=== PATIENT | male | born 1945 | race Caucasian/White ===

== ENCOUNTER 2022-08-06 10:09 | Outpatient (CLI) | payer MEDICARE, BC ==
[~2022-08-06 10:09] MED LIST: Iopamidol 370 76% 100 ML VIAL ONE
== END 2022-08-06 10:10 | disposition home or self-care (01) ==
LOC: BICCT 10:09
PROVIDERS: ATTEND Internal Medicine Cardiovascular Disease
DX: I65.23 Occlusion and stenosis of bilateral carotid arteries (principal); I67.2 Cerebral atherosclerosis
CPT/HCPCS: 70498; 82565

== ENCOUNTER 2024-06-15 17:56 | Inpatient (IN) | payer MEDICARE, BC ==
[2024-06-15] MEDS ORDERED: hydrALAZINE 20 MG/ML VIAL SLOW IVP PRN (22:07)
[2024-06-15] MEDS ORDERED: Labetalol HCl 100 MG/20 ML VIAL SLOW IVP PRN (22:07)
[2024-06-15 23:02] VITALS: BMI 28.0
[2024-06-16] MEDS ORDERED: Ondansetron PF 4 MG/2 ML Vial IVP PRN (00:47)
[2024-06-16] MEDS ORDERED: Acetaminophen 650 MG Suppository PR PRN (00:47)
[2024-06-16] MEDS ORDERED: Acetaminophen 325 MG TAB PO PRN (00:47)
[2024-06-16] MEDS ORDERED: Ondansetron ODT 4 MG TAB PO PRN (00:47)
[2024-06-16] MEDS ORDERED: Calcium Carbonate 500 MG ChewTAB PO PRN (00:47)
[2024-06-16] MEDS ORDERED: Insulin Lispro 100 UNIT/ML 10 ML VIAL SC PRN ×2 (00:49)
[2024-06-16] MEDS ORDERED: Dextrose 5% in Water 1,000 ML IV PRN (00:49)
[2024-06-16] MEDS ORDERED: Glucagon 1 MG/ML KIT IM PRN (00:49)
[2024-06-16] MEDS ORDERED: Dextrose 50% Abboject 50 ML SYRINGE SLOW IVP PRN (00:49)
[2024-06-16 03:48] LABS: #Basophils 0.03 10x3/uL (0.0-0.2); %Basophils 0.4 % (0.0-1.0); %Eosinophils 2.6 % (0.0-10.0); %Lymphocytes 21.4 % (21.0-51.0); %Monocytes 10.6 % (0.0-10.0); %Neutrophils 64.8 % (42.0-75.0); Hematocrit 40.4 % (42.0-52.0); Hemoglobin 13.2 g/dL (14.0-18.0); Mean Corpuscular HGB CONC 32.7 g/dL (32.0-36.0); Mean Corpuscular Hemoglobin 29.7 pg (27.0-31.0); Mean Corpuscular Volume 90.8 fL (78.0-98.0); Mean Platelet Volume 9.4 fL (7.4-10.4); Platelet Count 214 10x3/uL (130-400); RBC Distribution Width 13.2 % (11.5-14.5); Red Blood Cell (RBC) Count 4.45 mill/uL (4.70-6.10)
[2024-06-16 04:10] LABS: Anion Gap 13 mmol/L (10-20); BUN (Urea Nitrogen) 25 mg/dL (8.4-25.7); Calc. Creatinine Clearance 65 mL/min (70-130); Calcium 9.5 mg/dL (7.8-10.44); Carbon Dioxide 22 mmol/L (23-31); Cardiac Risk 4.6 (Less than 4.5); Chloride 108 mmol/L (98-107); Cholesterol 167 mg/dl (< 200 Desired); Estimated GFR 65; Glucose 103 mg/dL (83-110); HDL Cholesterol 36 mg/dL (>60 Neg Risk); LDL Cholesterol, Calculated 90 mg/dL; Potassium 4.4 mmol/L (3.5-5.1); Sodium 139 mmol/L (136-145); Triglycerides 203 mg/dL (Less than 150)
[2024-06-16] MEDS ORDERED: Lorazepam 1 MG TAB PO SCH (06:45)
[2024-06-16] MEDS: Lorazepam 1 MG TAB PO SCH (07:51)
[2024-06-16] MEDS: Cilostazol 100 MG TAB PO SCH (09:48)
[2024-06-16] MEDS: Vit A,C & E/Lutein/Minerals Tablet PO SCH (09:48)
[2024-06-16] MEDS: Atorvastatin Calcium 20 MG TAB PO SCH (09:49)
[2024-06-16] MEDS: Aspirin 81 mg Enteric Coated Tablet PO SCH (09:49)
[2024-06-16] MEDS: Famotidine 20 MG TAB PO SCH (09:49)
[2024-06-16] MEDS: Losartan 25 MG TAB PO SCH (09:49)
[2024-06-16] MEDS: Famotidine/PF 20 mg/2ml Vial SLOW IVP SCH (09:49)
[2024-06-16] MEDS: metFORMIN 500 MG TAB PO SCH (09:49)
[2024-06-16] MEDS: Metoprolol Succinate XL 25 MG ER.TAB PO SCH (09:49)
[2024-06-16 13:29] LABS: Hemoglobin A1c 5.8 % (4.0-6.0)
[2024-06-16] MEDS ORDERED: Atorvastatin Calcium 40 MG TAB PO SCH (21:00)
[2024-06-16] MEDS: Amitriptyline HCl 100 MG TAB PO SCH (21:55)
[2024-06-16] MEDS: Enoxaparin 40 MG (0.4 mL) SYRINGE SC SCH (22:00)
[2024-06-17] MEDS: Clopidogrel Bisulfate 75 MG TAB PO SCH (09:02)
[2024-06-18] MEDS ORDERED: PROPOFOL 0 ML ONE (10:49)
[2024-06-18] MEDS ORDERED: KETAMINE 100 MG/ML (5ML VIAL) ONE (13:31)
[2024-06-18] MEDS ORDERED: Midazolam HCl 2 mg/2 ml Vial ONE (13:31)
[2024-06-18] MEDS ORDERED: PROPOFOL 200 MG/20 ML VIAL ONE (13:46)
[2024-06-19] MEDS: QUEtiapine 25 MG TAB PO SCH (02:26)
[2024-06-20] MEDS ORDERED: Electrolyte Replacement Protocol 1 EACH FS ONE (08:27)
[2024-06-20] MEDS ORDERED: Electrolyte Replacement Protocol FS PRN (08:30)
[2024-06-20 12:17] VITALS: BP 150/72; TEMP 97.7
== END 2024-06-20 16:25 | disposition home or self-care (01) | DRG 69 ==
LOC: 2SE 18:43 → OBSVTOIN 06-16 13:37
PROVIDERS: ADMIT Family Medicine; ATTEND Internal Medicine
PROC: B24BZZ4 Ultrasonography of Heart with Aorta, Transesophageal (ICD-10-PCS; principal; 2024-06-18)
DX: G45.9 Transient cerebral ischemic attack, unspecified (principal); I42.9 Cardiomyopathy, unspecified; I35.0 Nonrheumatic aortic (valve) stenosis; E11.9 Type 2 diabetes mellitus without complications; I12.9 Hypertensive chronic kidney disease with stage 1 through stage 4 chronic kidney disease, or unspecified chronic kidney disease; N18.2 Chronic kidney disease, stage 2 (mild); E78.5 Hyperlipidemia, unspecified; D63.1 Anemia in chronic kidney disease; Z79.82 Long term (current) use of aspirin; Z79.899 Other long term (current) drug therapy; I73.9 Peripheral vascular disease, unspecified
CPT/HCPCS: 36415; 36416; 70450; 70551; 80048; 80061; 83036; 84443; 85025; 86141; 93306; 93312; 93880; G0378; J1650; J2250; J2704; J3490

== ENCOUNTER 2025-01-07 07:24 | Day surgery (SDC) | payer MEDICARE, BC ==
[2025-01-07] MEDS ORDERED: PROPOFOL 20 ML ONE ×2 (07:51→07:52)
[2025-01-07] MEDS ORDERED: PHENYLEPHRINE-NS 100 MCG/ML 10 ML SYRINGE ONE (07:56)
[2025-01-07] MEDS ORDERED: Lidocaine 1% PF 5 ML VIAL ONE (08:38)
== END 2025-01-07 10:13 | disposition home or self-care (01) ==
LOC: SDC 07:24
PROVIDERS: ATTEND Internal Medicine Gastroenterology
PROC: 0DD98ZX Extraction of Duodenum, Via Natural or Artificial Opening Endoscopic, Diagnostic (ICD-10-PCS; principal; 2025-01-07)
PROC: 0DJD8ZZ Inspection of Lower Intestinal Tract, Via Natural or Artificial Opening Endoscopic (ICD-10-PCS; 2025-01-07)
DX: D50.9 Iron deficiency anemia, unspecified (principal); K29.00 Acute gastritis without bleeding; K26.9 Duodenal ulcer, unspecified as acute or chronic, without hemorrhage or perforation; K63.89 Other specified diseases of intestine; I73.9 Peripheral vascular disease, unspecified; E11.42 Type 2 diabetes mellitus with diabetic polyneuropathy; E78.5 Hyperlipidemia, unspecified; E21.3 Hyperparathyroidism, unspecified; I10 Essential (primary) hypertension; I25.10 Atherosclerotic heart disease of native coronary artery without angina pectoris; Z79.82 Long term (current) use of aspirin; Z79.84 Long term (current) use of oral hypoglycemic drugs; Z79.899 Other long term (current) drug therapy; Z86.73 Personal history of transient ischemic attack (TIA), and cerebral infarction without residual deficits
CPT/HCPCS: 43239; 45378; J2704; 88305

== ENCOUNTER 2025-02-17 12:48 | Emergency (ER) | payer MEDICARE, BC ==
[2025-02-17 13:49] LABS: ALT (SGPT) 17 U/L (Less than 45); AST (SGOT) 28 U/L (11-34); Albumin 3.7 g/dL (3.1-4.5); Alkaline Phosphatase 81 U/L (40-110); Anion Gap 14 mmol/L (10-20); BUN (Urea Nitrogen) 22 mg/dL (8.4-25.7); Bilirubin, Total 0.2 mg/dL (0.3-1.2); Calc. Creatinine Clearance 0 mL/min (70-130); Calcium 9.1 mg/dL (7.8-10.44); Carbon Dioxide 25 mmol/L (23-31); Chloride 107 mmol/L (98-107); Globulin 2.1 g/dL (2.4-3.5); Glucose 100 mg/dL (83-110); Potassium 4.9 mmol/L (3.5-5.1); Sodium 141 mmol/L (136-145)
[2025-02-17 14:10] LABS: #Basophils Less than 0.03 10x3/uL (0.0-0.2); #Eosinophils 0.11 10x3/uL (0.0-0.7); #Monocytes 0.65 10x3/uL (0.11-0.59); #Neutrophils 3.87 10x3/uL (1.40-6.50); %Basophils 0.2 % (0.0-1.0); %Eosinophils 2.0 % (0.0-10.0); %Lymphocytes 17.2 % (21.0-51.0); %Monocytes 11.5 % (0.0-10.0); %Neutrophils 68.7 % (42.0-75.0); Hematocrit 19.6 % (42.0-52.0); Hemoglobin 5.6 g/dL (14.0-18.0); Mean Corpuscular Hemoglobin 28.1 pg (27.0-31.0); Mean Corpuscular Volume 98.5 fL (78.0-98.0); Platelet Count 238 10x3/uL (130-400); Red Blood Cell (RBC) Count 1.99 mill/uL (4.70-6.10); White Blood Cell (WBC) Count 5.63 10x3/uL (4.8-10.8)
[2025-02-17 14:43] LABS: Anisocytosis SLIGHT = 6-15 cells HPF (0-5); Macrocytosis SLIGHT = 6-15 cells HPF (0-5); Ovalocytes SLIGHT = 2-5 cells HPF (0-1); Platelet Adequacy Comment Platelets Normal; Polychromasia SLIGHT = 2-3 cells HPF (0-2)
== END 2025-02-17 19:05 | disposition home or self-care (01) ==
LOC: ERS 12:48
DX: D64.9 Anemia, unspecified (principal); R53.1 Weakness; I10 Essential (primary) hypertension; Z86.73 Personal history of transient ischemic attack (TIA), and cerebral infarction without residual deficits; E11.9 Type 2 diabetes mellitus without complications; Z79.84 Long term (current) use of oral hypoglycemic drugs; Z79.02 Long term (current) use of antithrombotics/antiplatelets; Z79.899 Other long term (current) drug therapy; Z79.82 Long term (current) use of aspirin
CPT/HCPCS: 36430; 80053; 85025; 86850; 86900; 86901; 86920; 93005; 99285; P9016

== ENCOUNTER 2025-05-14 12:57 | Inpatient (IN) | payer MEDICARE, BC ==
[~2025-05-14 12:57] MED LIST changes: -Iopamidol 370 76% 100 ML VIAL ONE; +Iopamidol-370 76% 500 ML MDV (1 ML CHARGE) ONE
[2025-05-14 13:37] LABS: #Basophils 0.03 10x3/uL (0.0-0.2); #Eosinophils 0.16 10x3/uL (0.0-0.7); #Monocytes 1.16 10x3/uL (0.11-0.59); #Neutrophils 7.84 10x3/uL (1.40-6.50); %Basophils 0.3 % (0.0-1.0); %Eosinophils 1.6 % (0.0-10.0); %Lymphocytes 10.2 % (21.0-51.0); %Monocytes 11.3 % (0.0-10.0); %Neutrophils 76.2 % (42.0-75.0); Hematocrit 35.7 % (42.0-52.0); Hemoglobin 11.1 g/dL (14.0-18.0); Mean Corpuscular Hemoglobin 29.0 pg (27.0-31.0); Mean Corpuscular Volume 93.2 fL (78.0-98.0); Platelet Count 347 10x3/uL (130-400); Red Blood Cell (RBC) Count 3.83 mill/uL (4.70-6.10); White Blood Cell (WBC) Count 10.28 10x3/uL (4.8-10.8)
[2025-05-14 13:51] LABS: INR-International Normal Ratio 1.1; Prothrombin Time 14.2 sec (12.0-14.7)
[2025-05-14 13:54] LABS: PTT 36.0 sec (22.9-36.1)
[2025-05-14 13:59] LABS: ALT (SGPT) 17 U/L (Less than 45); AST (SGOT) 22 U/L (11-34); Acetaminophen Less than 10 mcg/mL (Less than 10); Albumin 3.3 g/dL (3.1-4.5); Alkaline Phosphatase 108 U/L (40-110); Anion Gap 17 mmol/L (10-20); BUN (Urea Nitrogen) 18 mg/dL (8.4-25.7); Bilirubin, Total 0.2 mg/dL (0.3-1.2); Calc. Creatinine Clearance 0 mL/min (70-130); Calcium 9.9 mg/dL (7.8-10.44); Carbon Dioxide 23 mmol/L (23-31); Chloride 100 mmol/L (98-107); Globulin 3.7 g/dL (2.4-3.5); Glucose 135 mg/dL (83-110); Lipase 134 U/L (8-78); Potassium 4.9 mmol/L (3.5-5.1); Salicylate Less than 8.0 mg/dL (Less than 8.0); Sodium 135 mmol/L (136-145)
[2025-05-14] MEDS ORDERED: Aspirin Chewable 81 MG TAB ONE (13:59)
[2025-05-14 15:10] LABS: Glucose, Urine (Dipstick) Negative (Negative); Leukocyte Negative (Negative); Protein, Urine (Dipstick) Trace mg/dL (Neg-Trace); Specific Gravity, Urine Less/Equal 1.005 (1.005-1.030)
[2025-05-14] MEDS ORDERED: cefTRIAXone (ROCEPHIN) 2 GM VIAL ONE (15:10)
[2025-05-14] MEDS ORDERED: Azithromycin 250 MG TAB ONE (15:10)
[2025-05-14 15:12] LABS: Bacteria/HPF None Seen HPF (None Seen); CAUTI Indications for Culture Alt mental st,lethar; RBC/HPF 0-3 HPF (0-3); WBC/HPF 0-3 HPF (0-3)
[2025-05-14] MEDS ORDERED: Azithromycin 500 MG VIAL ONE (15:12)
[2025-05-14 15:14] LABS: Urine Culture Reflex No No
[2025-05-14 15:21] LABS: Cocaine Metabolite Screen Negative (Negative); THC/Cannabinoid Screen Negative (Negative); Tricyclic Screen PRELIM POSITIVE (Negative)
[2025-05-14] MEDS ORDERED: Glucagon 1 MG/ML KIT IM PRN (15:37)
[2025-05-14] MEDS ORDERED: Dextrose 50% Abboject 50 ML SYRINGE SLOW IVP PRN (15:37)
[2025-05-14 18:11] VITALS: BMI 26.3
[2025-05-14] MEDS: Famotidine 20 MG TAB PO SCH (20:57)
[2025-05-15 03:55] LABS: Anion Gap 13 mmol/L (10-20); BUN (Urea Nitrogen) 17 mg/dL (8.4-25.7); Calc. Creatinine Clearance 67 mL/min (70-130); Calcium 9.8 mg/dL (7.8-10.44); Carbon Dioxide 25 mmol/L (23-31); Cardiac Risk 2.9 (Less than 4.5); Chloride 102 mmol/L (98-107); Cholesterol 115 mg/dl (< 200 Desired); Glucose 137 mg/dL (83-110); HDL Cholesterol 39 mg/dL (>60 Neg Risk); LDL Cholesterol, Calculated 58 mg/dL; Potassium 4.2 mmol/L (3.5-5.1); Sodium 136 mmol/L (136-145); Triglycerides 92 mg/dL (Less than 150)
[2025-05-15] MEDS: Losartan 25 MG TAB PO SCH (11:20)
[2025-05-15] MEDS: Aspirin 81 mg Enteric Coated Tablet PO SCH (11:20)
[2025-05-15] MEDS: Metoprolol Succinate XL 25 MG ER.TAB PO SCH (11:21)
[2025-05-15] MEDS: Acetaminophen 325 MG TAB PO PRN (22:44)
[2025-05-15] MEDS: Melatonin 3 MG TAB PO PRN (22:44)
[2025-05-16 05:23] LABS: #Basophils 0.04 10x3/uL (0.0-0.2); #Eosinophils 0.20 10x3/uL (0.0-0.7); #Monocytes 0.91 10x3/uL (0.11-0.59); #Neutrophils 5.22 10x3/uL (1.40-6.50); %Basophils 0.5 % (0.0-1.0); %Eosinophils 2.6 % (0.0-10.0); %Lymphocytes 15.9 % (21.0-51.0); %Monocytes 12.0 % (0.0-10.0); %Neutrophils 68.7 % (42.0-75.0); Hematocrit 34.3 % (42.0-52.0); Hemoglobin 10.5 g/dL (14.0-18.0); Mean Corpuscular Hemoglobin 28.3 pg (27.0-31.0); Mean Corpuscular Volume 92.5 fL (78.0-98.0); Platelet Count 371 10x3/uL (130-400); Red Blood Cell (RBC) Count 3.71 mill/uL (4.70-6.10); White Blood Cell (WBC) Count 7.60 10x3/uL (4.8-10.8)
[2025-05-16 05:35] LABS: ALT (SGPT) 18 U/L (Less than 45); AST (SGOT) 32 U/L (11-34); Albumin 3.2 g/dL (3.1-4.5); Alkaline Phosphatase 109 U/L (40-110); Anion Gap 15 mmol/L (10-20); BUN (Urea Nitrogen) 16 mg/dL (8.4-25.7); Bilirubin, Total 0.1 mg/dL (0.3-1.2); Calc. Creatinine Clearance 61 mL/min (70-130); Calcium 9.9 mg/dL (7.8-10.44); Carbon Dioxide 22 mmol/L (23-31); Chloride 106 mmol/L (98-107); Globulin 3.7 g/dL (2.4-3.5); Glucose 158 mg/dL (83-110); Magnesium 1.8 mg/dL (1.6-2.6); Potassium 4.2 mmol/L (3.5-5.1); Sodium 139 mmol/L (136-145)
[2025-05-16 12:03] VITALS: BP 168/85; TEMP 98.5
== END 2025-05-16 13:20 | disposition home or self-care (01) | DRG 69 ==
LOC: ERS 12:57 → 2SE 15:04
PROVIDERS: ADMIT Internal Medicine; ATTEND Internal Medicine
DX: G45.9 Transient cerebral ischemic attack, unspecified (principal); J18.9 Pneumonia, unspecified organism; I10 Essential (primary) hypertension; E78.5 Hyperlipidemia, unspecified; E11.51 Type 2 diabetes mellitus with diabetic peripheral angiopathy without gangrene; E21.3 Hyperparathyroidism, unspecified; I25.10 Atherosclerotic heart disease of native coronary artery without angina pectoris; Z98.890 Other specified postprocedural states; E86.0 Dehydration; Z91.81 History of falling; R47.81 Slurred speech; Z79.82 Long term (current) use of aspirin; Z79.84 Long term (current) use of oral hypoglycemic drugs; Z79.899 Other long term (current) drug therapy
CPT/HCPCS: 0042T; 36415; 36416; 70450; 70496; 70498; 70551; 71045; 80048; 80053; 80061; 80306; 80307; 81001; 83036; 83605; 83690; 83735; 83880; 84443; 84484; 85025; 85610; 85730; 86850; 86900; 86901; 87040; 87086; 93005; 96365; 96367; J0456; J0696; J1815; J7030; Q9967